=== PATIENT | male | born 2000 | race Caucasian/White ===

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

== ENCOUNTER 2021-09-08 20:26 | Emergency (ER) | payer BC, MEDICAID ==
--- NOTE | 2021-09-08 21:02 | EDM.PDOC ---
ED HPI GENERAL MEDICAL PROBLEM - General Chief Complaint: Neurological Problem Stated Complaint: questionable seizure activity Time Seen by Provider: 09/08/21 21:02 Source of Information: Reports: Patient History Limitations: Reports: No Limitations - History of Present Illness INITIAL COMMENTS - FREE TEXT/NARRATIVE: patient was brought to the ER with his father due to an episode of syncope. He reports it occurred 30-40 min ago while at the garage working with a friend. He suddenly felt dizzy for few seconds before he passed out and collapsed. He regained consciousness immediately. It was witnessed, no seizure activities. No fever or chills. no weakness or numbness. no headache or vision changes. Also reports mild left sided chest discomfort. no dyspnea. denies illicit drugs abuse. no similar episodes in the past. - Related Data Allergies Allergy/AdvReac Type Severity Reaction Status Date / Time bacitracin Allergy Rash Verified 09/08/21 21:27 [From Neosporin ([id number])] neomycin Allergy Rash Verified 09/08/21 21:27 [From Neosporin ([id number])] polymyxin B Allergy Rash Verified 09/08/21 21:27 [From Neosporin ([id number])] Home Meds: Home Meds NK [No Known Home Meds] 09/08/21 [History] Past Medical History - Past Health History Medical/Surgical History: Denies Medical/Surgical History - Infectious Disease History Infectious Disease History: Reports: None Social & Family History - Family History Family Medical History: No Pertinent Family History ED ROS GENERAL - Review of Systems Review Of Systems: See Below Constitutional: Reports: No Symptoms HEENT: Reports: No Symptoms Respiratory: Reports: No Symptoms Cardiovascular: Reports: No Symptoms GI/Abdominal: Reports: No Symptoms Musculoskeletal: Reports: No Symptoms Skin: Reports: No Symptoms ED EXAM, NEURO - Physical Exam Exam: See Below Exam Limited By: No Limitations General Appearance: Alert, WD/WN, No Apparent Distress Eye Exam: Bilateral Eye: EOMI, PERRL Head Exam: Atraumatic Respiratory/Chest: No Respiratory Distress Cardiovascular: Normal Peripheral Pulses, Regular Rate, Rhythm Neurological: Alert, Normal Mood/Affect, Normal Gait, No Motor/Sensory Deficits, Oriented x 3 Extremities: Normal Inspection #1 Interpretation EKG Date: 09/08/21 Rhythm: NSR [place]: Normal P-Wave: Present QRS: Normal ST-T: Normal QT: Normal Course - Vital Signs Last Recorded V/S: Last Vital Signs Temp 36.8 C 09/08/21 21:39 Pulse 65 09/08/21 21:39 Resp 18 09/08/21 21:39 BP 135/72 09/08/21 21:39 Pulse Ox 98 09/08/21 21:39 - Orders/Labs/Meds Orders: Active Orders 24 hr Category Date Time Status CXR [Chest 1V Frontal] [CR] Stat Exams 09/08/21 22:09 Taken Holter Monitor 3-7 Day [EK] Stat Ther 09/08/21 22:00 Ordered Labs: Laboratory Tests 09/08/21 09/08/21 09/08/21 Range/Units 20:58 20:58 21:01 WBC 13.0 H D (4.0-11.0) K/uL RBC 5.27 (4.50-6.50) M/uL Hgb 15.9 (13.0-18.0) g/dL Hct 46.0 (40.0-54.0) % MCV 87 (76-96) fL MCH 30.2 (27.0-32.0) pg MCHC 34.6 (31.0-35.0) g/dL RDW 12.1 (11.0-16.0) % Plt Count 257 (150-400) K/uL MPV 10.2 H (6.0-10.0) fL Sodium 141 (136-145) mmol/L Potassium 3.5 (3.5-5.1) mmol/L Chloride 103 (98-107) mmol/L Carbon Dioxide 29.8 (21.0-32.0) mmol/L Anion Gap 11.7 (5.0-15.0) mmol/L BUN 11 D (8-26) mg/dL Creatinine 1.00 (0.70-1.30) mg/dL Est Cr Clr Drug Dosing 130.41 mL/min Estimated GFR (MDRD) > 60 (>60) MLS/MIN BUN/Creatinine Ratio 11.0 (6-25) Glucose 127 H D (74-100) mg/dL Calcium 9.4 (8.5-10.1) mg/dL Total Bilirubin 0.6 (0.0-1.0) mg/dL AST 15 (15-37) U/L ALT 26 (12-78) U/L Alkaline Phosphatase 90 (46-116) U/L Troponin I < 0.017 (0.000-0.060) ng/mL Total Protein 7.6 (6.4-8.2) g/dL Albumin 4.5 (3.4-5.0) g/dL Globulin 3.1 (2.2-4.2) g/dL Albumin/Globulin Ratio 1.5 (0.8-2.0) Urine Opiates Screen (NEGATIVE) Ur Oxycodone Screen (NEGATIVE) Urine Methadone Screen (NEGATIVE) Ur Barbiturates Screen (NEGATIVE) Ur Tricyclics Screen (NEGATIVE) Ur Phencyclidine Scrn (NEGATIVE) Ur Amphetamine Screen (NEGATIVE) U Methamphetamines Scrn (NEGATIVE) Urine MDMA Screen (NEGATIVE) U Benzodiazepines Scrn (NEGATIVE) U Cocaine Metab Screen (NEGATIVE) U Marijuana (THC) Screen (NEGATIVE) 09/08/21 Range/Units 21:21 WBC (4.0-11.0) K/uL RBC (4.50-6.50) M/uL Hgb (13.0-18.0) g/dL Hct (40.0-54.0) % MCV (76-96) fL MCH (27.0-32.0) pg MCHC (31.0-35.0) g/dL RDW (11.0-16.0) % Plt Count (150-400) K/uL MPV (6.0-10.0) fL Sodium (136-145) mmol/L Potassium (3.5-5.1) mmol/L Chloride (98-107) mmol/L Carbon Dioxide (21.0-32.0) mmol/L Anion Gap (5.0-15.0) mmol/L BUN (8-26) mg/dL Creatinine (0.70-1.30) mg/dL Est Cr Clr Drug Dosing mL/min Estimated GFR (MDRD) (>60) MLS/MIN BUN/Creatinine Ratio (6-25) Glucose (74-100) mg/dL Calcium (8.5-10.1) mg/dL Total Bilirubin (0.0-1.0) mg/dL AST (15-37) U/L ALT (12-78) U/L Alkaline Phosphatase (46-116) U/L Troponin I (0.000-0.060) ng/mL Total Protein (6.4-8.2) g/dL Albumin (3.4-5.0) g/dL Globulin (2.2-4.2) g/dL Albumin/Globulin Ratio (0.8-2.0) Urine Opiates Screen Negative (NEGATIVE) Ur Oxycodone Screen Negative (NEGATIVE) Urine Methadone Screen Negative (NEGATIVE) Ur Barbiturates Screen Negative (NEGATIVE) Ur Tricyclics Screen Negative (NEGATIVE) Ur Phencyclidine Scrn Negative (NEGATIVE) Ur Amphetamine Screen Negative (NEGATIVE) U Methamphetamines Scrn Negative (NEGATIVE) Urine MDMA Screen Negative (NEGATIVE) U Benzodiazepines Scrn Negative (NEGATIVE) U Cocaine Metab Screen Negative (NEGATIVE) U Marijuana (THC) Screen Negative (NEGATIVE) - Re-Assessments/Exams Free Text/Narrative Re-Assessment/Exam: 09/08/21 22:53 EKG WNL - NSR vitals WNL labs - CBC, BMP and trop. Normal trop. zio patch was applied for heart monitoring Departure - Departure Time of Disposition: 22:00 Disposition: Home, Self-Care 01 Condition: Good Clinical Impression: Vasovagal attack, Syncope and collapse Syncope Qualifiers: Encounter type: initial encounter - Discharge Information *PRESCRIPTION DRUG MONITORING PROGRAM REVIEWED*: Not Applicable *COPY OF PRESCRIPTION DRUG MONITORING REPORT IN PATIENT MARCY: Not Applicable Instructions: Vasovagal Syncope, Pediatric, Syncope, [id number] Referrals: PCP,Unknown [Primary Care Provider] - Forms: ED Department Discharge Additional Instructions: - keep the zio patch on for at least 2 weeks - increase fluids intake to at least 1 gallon a day - follow up with your PCP in 2-3 weeks as needed - return to the ER if symptoms got worse or any concerns Sepsis Event Note (ED) - Focused Exam Vital Signs: Vital Signs Temp Pulse Resp BP Pulse Ox 09/08/21 21:39 36.8 C 65 18 135/72 98 09/08/21 20:50 36.8 C 65 18 135/72 98 - Problem List & Annotations (1) Syncope and collapse SNOMED Code(s): 658934184 Code(s): R55 - SYNCOPE AND COLLAPSE Status: Acute Priority: Low Current Visit: Yes (2) Vasovagal attack SNOMED Code(s): 458245454 Code(s): R55 - SYNCOPE AND COLLAPSE Status: Acute Priority: Low Current Visit: Yes - Problem List Review Problem List Initiated/Reviewed/Updated: Yes - My Orders Last 24 Hours: My Active Orders 09/08/21 22:00 Holter Monitor 3-7 Day [EK] Stat 09/08/21 22:09 CXR [Chest 1V Frontal] [CR] Stat - Assessment/Plan Last 24 Hours: My Active Orders 09/08/21 22:00 Holter Monitor 3-7 Day [EK] Stat 09/08/21 22:09 CXR [Chest 1V Frontal] [CR] Stat Plan: - keep the zio patch on for at least 2 weeks - increase fluids intake to at least 1 gallon a day - follow up with your PCP in 2-3 weeks as needed - return to the ER if symptoms got worse or any concerns
--- NOTE | 2021-09-09 08:27 | CR ---
Date of Service: 09/08/21 Clinical Data: CP PA CHEST: No priors. The heart size is normal. The lungs are clear. No pneumothorax. No pleural effusions. There is moderate right convexity scoliosis of the mid and lower thoracic spine. No other significant findings. [id number] [facility]
== END 2021-09-08 22:55 | disposition home or self-care (01) ==
LOC: LB.ED 20:26
DX: R55 Syncope and collapse (principal); Z88.1 Allergy status to other antibiotic agents; Z88.8 Allergy status to other drugs, medicaments and biological substances
CPT/HCPCS: 36415; 71045; 80053; 80307; 84484; 85027; 93005; 93242; 93243; 99284-25